=== PATIENT | female | born 1950 | race Two or more races ===

== ENCOUNTER 2025-01-20 02:22 | Inpatient (IN) | payer MEDICARE ==
[~2025-01-20] VITALS: Ht 157.5 cm; Wt 60.3 kg
[2025-01-20 03:05] LABS: BASOPHILS % (AUTO) 0.3 % (0.0-2.0); EOSINOPHILS # (AUTO) 0.2 K/uL (0.0-0.7); EOSINOPHILS % (AUTO) 2.3 % (0.0-6.0); HEMATOCRIT 41 % (33-45); HEMOGLOBIN 13.6 g/dL (11.5-14.8); LYMPHOCYTES # (AUTO) 0.6 K/uL (0.8-4.8); LYMPHOCYTES % (AUTO) 5.8 % (20.0-44.0); MEAN CORPUSCULAR HEMOGLOBIN 32 PG (26.0-33.0); MEAN CORPUSCULAR HGB CONC 34 g/dl (31.0-36.0); MEAN CORPUSCULAR VOLUME 94 fL (82-100); MONOCYTES # (AUTO) 0.5 K/uL (0.1-1.30); MONOCYTES % (AUTO) 4.8 % (2.0-12.0); NEUTROPHILS % (AUTO) 86.8 % (43.0-81.0); PLATELET COUNT (AUTO) 164 K/uL (150-450); RED BLOOD CELL COUNT(AUTO) 4.34 MIL/uL (4.0-5.2); RED CELL DISTRIBUTION WIDTH 13.5 % (11.5-15.0); WHITE BLOOD COUNT (AUTO) 10.4 K/uL (4.3-11.0)
[2025-01-20] MEDS: IV NS 0.9% 500 ML BAG IV ONE (03:06)
[2025-01-20 03:11] LABS: INR 1.08 (0.91-1.10); PARTIAL THROMBOPLASTIN TIME 25.9 SEC (24.3-34.3); PROTHROMBIN TIME 11.4 SECS (9.2-11.1)
[2025-01-20 03:26] LABS: CALCIUM, SERUM 9.2 mg/dL (8.5-10.1); CARBON DIOXIDE 27 mmol/L (21-32); CHLORIDE 98 mmol/L (98-107); CREATININE 0.9 mg/dL (0.6-1.3); GLUCOSE 172 mg/dL (74-106); POTASSIUM 3.9 mmol/L (3.5-5.1); SODIUM SERUM 134 mmol/L (136-145); UREA NITROGEN, BLOOD 22 mg/dL (7-18)
[2025-01-20 03:39] LABS: ALANINE AMINOTRANSFERASE 32 U/L (12-78); ALKALINE PHOSPHATASE 134 U/L (46-116); ASPARTATE AMINOTRANSFERASE 27 U/L (15-37); BILIRUBIN,DIRECT 0.2 mg/dL (0.0-0.2); BILIRUBIN,TOTAL 0.6 mg/dL (0.2-1.0); NT-PRO BNP 2116 pg/mL (0-125); TOTAL PROTEIN, SERUM 7.5 g/dL (6.4-8.2)
[2025-01-20] MEDS ORDERED: FUROSEMIDE 20 MG/2 ML VIAL ONE (05:21)
[2025-01-20] MEDS: FUROSEMIDE 20 MG/2 ML VIAL IV ONE (05:22)
[2025-01-20] MEDS ORDERED: MAGNESIUM HYDROXIDE 30 ML UDC PO PRN (06:00)
[2025-01-20] MEDS ORDERED: MAG HYDROX/AL HYDROX/SIMETH 30 ML UDC PO PRN (06:00)
[2025-01-20] MEDS: ASPIRIN EC 81 MG TABLET.DR PO SCH (09:06)
[2025-01-20] MEDS: PANTOPRAZOLE 40 MG VIAL IV SCH (09:06)
[2025-01-20] MEDS: FUROSEMIDE 20 MG/2 ML VIAL IV SCH (09:06)
[2025-01-20] MEDS ORDERED: LOSA50TA39 PO (09:07)
[2025-01-20] MEDS ORDERED: CARV12.52 PO (09:07)
[2025-01-20] MEDS ORDERED: ATOR40TA PO (09:07)
[2025-01-20] MEDS ORDERED: FLUV100T3 PO (09:07)
[2025-01-20] MEDS: ENOXAPARIN SODIUM 40 MG/0.4 ML DISP.SYRIN SQ SCH (09:10)
[2025-01-20 09:35] VITALS: BP 148/128; TEMP 98.9; O2SAT 97
[2025-01-20] MEDS: METOPROLOL TARTRATE 50 MG TABLET PO SCH (10:55)
[2025-01-20] MEDS: ENOXAPARIN SODIUM 30 MG/0.3 ML DISP.SYRIN SQ ONE (10:56)
[2025-01-20 12:19] VITALS: BP 127/89; TEMP 97.5; O2SAT 99
[2025-01-20] MEDS ORDERED: CT SWABBABLE VALVE TRANS SET 1 EA INFUS.SET MC ONE (12:47)
[2025-01-20] MEDS ORDERED: IV NS 0.9% 250 ML IV ONE (12:47)
[2025-01-20] MEDS ORDERED: IOHEXOL-350 100 ML VIAL IV ONE (12:47)
[2025-01-20] MEDS: ACETAMINOPHEN 325 MG TABLET PO PRN (16:30)
[2025-01-20 16:43] VITALS: BP 122/81; TEMP 97.5; O2SAT 95
[2025-01-20] MEDS ORDERED: ENOXAPARIN SODIUM 40 MG/0.4 ML DISP.SYRIN SQ SCH (18:00)
[2025-01-20 18:57] LABS: INR 1.11 (0.91-1.10); PARTIAL THROMBOPLASTIN TIME 30.1 SEC (24.3-34.3); PROTHROMBIN TIME 11.7 SECS (9.2-11.1)
[2025-01-20] MEDS: HEPARIN SODIUM, PORCINE 5000 UNITS/1 ML VIAL IV ONE (22:00)
[2025-01-20] MEDS: HEPARIN INFUSION/D5W 500 ML IV PRN (23:13)
[2025-01-21] MEDS ORDERED: IV NS 0.9% 1,000 ML BAG IV PRN
[2025-01-21] MEDS: IV NS 0.9% 1,000 ML IV SCH (00:11)
[2025-01-21 07:18] LABS: CALCIUM, SERUM 8.7 mg/dL (8.5-10.1); CREATININE 0.7 mg/dL (0.6-1.3); MAGNESIUM 1.8 mg/dL (1.8-2.4); PHOSPHORUS 3.8 mg/dL (2.5-4.9); POTASSIUM 3.3 mmol/L (3.5-5.1)
[2025-01-21 07:43] LABS: BASOPHILS % (AUTO) 0.7 % (0.0-2.0); EOSINOPHILS # (AUTO) 0.3 K/uL (0.0-0.7); EOSINOPHILS % (AUTO) 4.1 % (0.0-6.0); HEMATOCRIT 39 % (33-45); HEMOGLOBIN 13.5 g/dL (11.5-14.8); LYMPHOCYTES # (AUTO) 1.7 K/uL (0.8-4.8); LYMPHOCYTES % (AUTO) 23.3 % (20.0-44.0); MEAN CORPUSCULAR HEMOGLOBIN 33 PG (26.0-33.0); MEAN CORPUSCULAR HGB CONC 35 g/dl (31.0-36.0); MEAN CORPUSCULAR VOLUME 94 fL (82-100); MONOCYTES # (AUTO) 0.7 K/uL (0.1-1.30); MONOCYTES % (AUTO) 10.1 % (2.0-12.0); NEUTROPHILS # (AUTO) 4.4 K/uL (1.8-8.9); NEUTROPHILS % (AUTO) 61.8 % (43.0-81.0); PLATELET COUNT (AUTO) 153 K/uL (150-450); RED BLOOD CELL COUNT(AUTO) 4.15 MIL/uL (4.0-5.2); RED CELL DISTRIBUTION WIDTH 13.4 % (11.5-15.0); WHITE BLOOD COUNT (AUTO) 7.1 K/uL (4.3-11.0)
[2025-01-21] MEDS: ATORVASTATIN 40 MG TABLET PO SCH (09:00)
[2025-01-21] MEDS: FLUVOXAMINE MALEATE 50 MG TABLET PO SCH (09:00)
[2025-01-21] MEDS: LOSARTAN POTASSIUM 50 MG TABLET PO SCH (09:00)
[2025-01-21] MEDS: METOPROLOL TARTRATE 50 MG TABLET PO SCH (11:15)
[2025-01-21] MEDS: POTASSIUM CHLORIDE 20 MEQ TAB.PRT.SR PO SCH (11:15)
[2025-01-21 13:32] LABS: INR 1.08 (0.91-1.10); PROTHROMBIN TIME 11.4 SECS (9.2-11.1)
[2025-01-21] MEDS ORDERED: DILTIAZEM HCL IV 125 MG in IV NS 0.9% 100 ML IV PRN (14:00)
[2025-01-21] MEDS ORDERED: DILTIAZEM HCL 50 MG IV IV ONE ×2 (14:00)
[2025-01-21] MEDS ORDERED: NS 0.9% IV PRN (14:00)
[2025-01-21] MEDS ORDERED: DILTIAZEM HCL IV PRN (14:00)
[2025-01-21] MEDS ORDERED: IOHEXOL-350 100 ML VIAL IV ONE (14:35)
[2025-01-21] MEDS ORDERED: NITROGLYCERIN 0.4 MG/TAB BOTTLE ONE (14:36)
[2025-01-21] MEDS ORDERED: CT SWABBABLE VALVE TRANS SET 1 EA INFUS.SET MC ONE (14:36)
[2025-01-21] MEDS ORDERED: IV NS 0.9% 250 ML IV ONE (14:36)
[2025-01-21] MEDS: NITROGLYCERIN 0.4 MG/TAB BOTTLE SL ONE (15:00)
[2025-01-21] MEDS ORDERED: METOPROLOL TARTRATE INJ 5 MG/5 ML AMPUL IVP PRN (15:00)
[2025-01-21] MEDS: DILTIAZEM HCL 25 MG IV IV ONE (15:49)
[2025-01-22] VITALS (29 sets, daily range): BP systolic 105–162; BP diastolic 67–99; TEMP 98.1; O2SAT 92–100
[2025-01-22] MEDS ORDERED: HEPARIN INFUSION/D5W 500 ML IV ONE (05:58)
[2025-01-22] MEDS ORDERED: LIDOCAINE HCL/MPF 1% 30 ML VIAL IJ ONE (07:14)
[2025-01-22] MEDS ORDERED: ANESTHESIA TRAY IN PYXIS 1 EA TRAY MC ONE (07:14)
[2025-01-22] MEDS ORDERED: CELLULOSE,OXIDIZED 1 EA PACK MC ONE (07:14)
[2025-01-22] MEDS ORDERED: CELLULOSE,OXIDIZED 1 EACH EACH MC ONE (07:14)
[2025-01-22] MEDS ORDERED: CELLULOSE,OXIDIZED 1 PKT EACH MC ONE (07:14)
[2025-01-22] MEDS ORDERED: HEMOSTATIC MATRIX 8 ML 1 EACH PAD MC ONE (07:14)
[2025-01-22] MEDS ORDERED: ROPIVACAINE HCL 0.5% 5 MG/ML 30ML VIAL ONE ×2 (07:27→09:31)
[2025-01-22] MEDS ORDERED: FENTANYL PF 250MCG/5ML AMPUL ONE (08:13)
[2025-01-22] MEDS: PANTOPRAZOLE 40 MG TABLET.DR PO SCH (09:00)
[2025-01-22] MEDS ORDERED: IOHEXOL 50 ML IV ONE (09:18)
[2025-01-22] MEDS: ONDANSETRON HCL/PF 4 MG/2 ML VIAL IVP PRN (11:02)
[2025-01-22] MEDS: APIXABAN 5 MG TABLET PO SCH (11:25)
[2025-01-22] MEDS ORDERED: IV NS 0.9% 1,000 ML IV PRN (11:29)
[2025-01-22] MEDS: PIPERACILLIN /TAZOBACTAM 3.375 G in IV D5W 50 ML IV SCH (12:34)
[2025-01-22 16:08] LABS: BASOPHILS % (AUTO) 0.2 % (0.0-2.0); EOSINOPHILS % (AUTO) 0.2 % (0.0-6.0); HEMATOCRIT 25 % (33-45); HEMOGLOBIN 8.7 g/dL (11.5-14.8); LYMPHOCYTES # (AUTO) 0.5 K/uL (0.8-4.8); LYMPHOCYTES % (AUTO) 5.6 % (20.0-44.0); MEAN CORPUSCULAR HEMOGLOBIN 33 PG (26.0-33.0); MEAN CORPUSCULAR HGB CONC 35 g/dl (31.0-36.0); MEAN CORPUSCULAR VOLUME 95 fL (82-100); MONOCYTES # (AUTO) 0.9 K/uL (0.1-1.30); MONOCYTES % (AUTO) 10.6 % (2.0-12.0); NEUTROPHILS % (AUTO) 83.4 % (43.0-81.0); PLATELET COUNT (AUTO) 119 K/uL (150-450); RED BLOOD CELL COUNT(AUTO) 2.67 MIL/uL (4.0-5.2); RED CELL DISTRIBUTION WIDTH 13.6 % (11.5-15.0); WHITE BLOOD COUNT (AUTO) 8.3 K/uL (4.3-11.0)
[2025-01-22 16:18] LABS: CALCIUM, SERUM 7.9 mg/dL (8.5-10.1); CREATININE 0.7 mg/dL (0.6-1.3); POTASSIUM 4.2 mmol/L (3.5-5.1)
[2025-01-22] MEDS: HYDROCODONE/APAP 5/325MG TABLET PO PRN (18:23)
[2025-01-22] MEDS: MORPHINE SULFATE INJ 2 MG/ML DISP.SYRIN IV PRN (20:52)
[2025-01-23] VITALS (17 sets, daily range): BP systolic 100–135; BP diastolic 62–104; TEMP 97.2–98.7; O2SAT 98–100
[2025-01-23 04:27] LABS: BASOPHILS % (AUTO) 0.4 % (0.0-2.0); EOSINOPHILS % (AUTO) 0.6 % (0.0-6.0); HEMATOCRIT 25 % (33-45); HEMOGLOBIN 8.8 g/dL (11.5-14.8); LYMPHOCYTES % (AUTO) 12.9 % (20.0-44.0); MEAN CORPUSCULAR HEMOGLOBIN 33 PG (26.0-33.0); MEAN CORPUSCULAR HGB CONC 35 g/dl (31.0-36.0); MEAN CORPUSCULAR VOLUME 95 fL (82-100); MONOCYTES # (AUTO) 1.2 K/uL (0.1-1.30); NEUTROPHILS # (AUTO) 5.3 K/uL (1.8-8.9); NEUTROPHILS % (AUTO) 70.1 % (43.0-81.0); PLATELET COUNT (AUTO) 130 K/uL (150-450); RED BLOOD CELL COUNT(AUTO) 2.67 MIL/uL (4.0-5.2); RED CELL DISTRIBUTION WIDTH 13.6 % (11.5-15.0); WHITE BLOOD COUNT (AUTO) 7.5 K/uL (4.3-11.0)
[2025-01-23 04:37] LABS: CALCIUM, SERUM 8.4 mg/dL (8.5-10.1); CREATININE 0.8 mg/dL (0.6-1.3); POTASSIUM 4.4 mmol/L (3.5-5.1)
[2025-01-23] MEDS ORDERED: IV NS 0.9% 1,000 ML IV PRN (11:30)
[2025-01-23] MEDS ORDERED: BUPIVACAINE 0.5 % PF 150 MG/30 ML VIAL ONE (14:28)
[2025-01-23] MEDS ORDERED: ROCURONIUM BROMIDE 50 MG/5 ML ONE (16:14)
[2025-01-23] MEDS ORDERED: FENTANYL PF 250MCG/5ML AMPUL ONE (16:14)
[2025-01-23 20:00] LABS: BASOPHILS % (AUTO) 0.2 % (0.0-2.0); EOSINOPHILS # (AUTO) 0.1 K/uL (0.0-0.7); EOSINOPHILS % (AUTO) 1.4 % (0.0-6.0); HEMATOCRIT 22 % (33-45); HEMOGLOBIN 7.4 g/dL (11.5-14.8); LYMPHOCYTES # (AUTO) 0.4 K/uL (0.8-4.8); LYMPHOCYTES % (AUTO) 6.6 % (20.0-44.0); MEAN CORPUSCULAR HEMOGLOBIN 32 PG (26.0-33.0); MEAN CORPUSCULAR HGB CONC 34 g/dl (31.0-36.0); MEAN CORPUSCULAR VOLUME 94 fL (82-100); MONOCYTES # (AUTO) 0.9 K/uL (0.1-1.30); MONOCYTES % (AUTO) 13.7 % (2.0-12.0); NEUTROPHILS # (AUTO) 5.1 K/uL (1.8-8.9); NEUTROPHILS % (AUTO) 78.1 % (43.0-81.0); PLATELET COUNT (AUTO) 115 K/uL (150-450); RED BLOOD CELL COUNT(AUTO) 2.29 MIL/uL (4.0-5.2); RED CELL DISTRIBUTION WIDTH 13.7 % (11.5-15.0); WHITE BLOOD COUNT (AUTO) 6.6 K/uL (4.3-11.0)
[2025-01-24] VITALS (11 sets, daily range): BP systolic 107–139; BP diastolic 66–97; TEMP 96.9–98.4; O2SAT 98–100
[2025-01-24 07:56] LABS: BASOPHILS % (AUTO) 0.4 % (0.0-2.0); EOSINOPHILS # (AUTO) 0.1 K/uL (0.0-0.7); HEMATOCRIT 25 % (33-45); HEMOGLOBIN 8.8 g/dL (11.5-14.8); LYMPHOCYTES # (AUTO) 0.7 K/uL (0.8-4.8); LYMPHOCYTES % (AUTO) 10.7 % (20.0-44.0); MEAN CORPUSCULAR HEMOGLOBIN 33 PG (26.0-33.0); MEAN CORPUSCULAR HGB CONC 35 g/dl (31.0-36.0); MEAN CORPUSCULAR VOLUME 93 fL (82-100); MONOCYTES # (AUTO) 0.9 K/uL (0.1-1.30); MONOCYTES % (AUTO) 13.9 % (2.0-12.0); NEUTROPHILS # (AUTO) 4.6 K/uL (1.8-8.9); PLATELET COUNT (AUTO) 118 K/uL (150-450); RED BLOOD CELL COUNT(AUTO) 2.71 MIL/uL (4.0-5.2); RED CELL DISTRIBUTION WIDTH 14.2 % (11.5-15.0); WHITE BLOOD COUNT (AUTO) 6.3 K/uL (4.3-11.0)
[2025-01-24 08:20] LABS: CALCIUM, SERUM 8.3 mg/dL (8.5-10.1); CREATININE 0.8 mg/dL (0.6-1.3); POTASSIUM 3.9 mmol/L (3.5-5.1)
[2025-01-24] MEDS: DILTIAZEM HCL CD 240 MG PO SCH (16:44)
[2025-01-24] MEDS: FUROSEMIDE 20 MG/2 ML VIAL IV SCH (16:44)
[2025-01-25] VITALS: BP 133/85; TEMP 97.5; O2SAT 100
[2025-01-25 04:00] VITALS: BP 114/75; TEMP 97.2; O2SAT 100
[2025-01-25 08:00] VITALS: BP 127/63; TEMP 98.5; O2SAT 99
[2025-01-25 08:53] LABS: BASOPHILS % (AUTO) 0.3 % (0.0-2.0); EOSINOPHILS # (AUTO) 0.3 K/uL (0.0-0.7); EOSINOPHILS % (AUTO) 3.5 % (0.0-6.0); HEMATOCRIT 26 % (33-45); HEMOGLOBIN 9.1 g/dL (11.5-14.8); LYMPHOCYTES # (AUTO) 0.6 K/uL (0.8-4.8); LYMPHOCYTES % (AUTO) 8.9 % (20.0-44.0); MEAN CORPUSCULAR HEMOGLOBIN 32 PG (26.0-33.0); MEAN CORPUSCULAR HGB CONC 35 g/dl (31.0-36.0); MEAN CORPUSCULAR VOLUME 93 fL (82-100); MONOCYTES # (AUTO) 0.9 K/uL (0.1-1.30); MONOCYTES % (AUTO) 11.9 % (2.0-12.0); NEUTROPHILS # (AUTO) 5.5 K/uL (1.8-8.9); NEUTROPHILS % (AUTO) 75.4 % (43.0-81.0); PLATELET COUNT (AUTO) 131 K/uL (150-450); RED BLOOD CELL COUNT(AUTO) 2.82 MIL/uL (4.0-5.2); RED CELL DISTRIBUTION WIDTH 14.2 % (11.5-15.0); WHITE BLOOD COUNT (AUTO) 7.3 K/uL (4.3-11.0)
[2025-01-25 09:22] LABS: CALCIUM, SERUM 8.8 mg/dL (8.5-10.1); CREATININE 0.9 mg/dL (0.6-1.3); POTASSIUM 4.2 mmol/L (3.5-5.1)
[2025-01-25] MEDS: FUROSEMIDE 20 MG/2 ML VIAL IV ONE (09:26)
[2025-01-25] MEDS ORDERED: METO50TA16 PO (10:56)
[2025-01-25] MEDS ORDERED: Hydrocodone/Apap 5/325MG PO (10:56)
[2025-01-25] MEDS ORDERED: PANT40TA49 PO (10:56)
[2025-01-25] MEDS ORDERED: APIX5TAB PO (10:56)
[2025-01-25 12:00] VITALS: BP 121/71; TEMP 98.2; O2SAT 97
[2025-01-25 14:18] VITALS: O2SAT 95
[2025-01-25 16:00] VITALS: BP 107/65; TEMP 98; O2SAT 94
== END 2025-01-25 19:13 | DRG 907 ==
LOC: ER 02:24 → TELE1 05:53 → TELE-TD 01-21 13:39 → ICU 01-22 10:16 → TELE-TD 01-23 10:07 → TELE1 01-23 10:27
PROVIDERS: ADMIT Nurse Practitioner Acute Care; ATTEND Internal Medicine
PROC: 04CN0ZZ Extirpation of Matter from Left Popliteal Artery, Open Approach (ICD-10-PCS; 2025-01-22)
PROC: 0KNR0ZZ Release Left Upper Leg Muscle, Open Approach (ICD-10-PCS; 2025-01-22)
PROC: 0KNR0ZZ Release Left Upper Leg Muscle, Open Approach (ICD-10-PCS; 2025-01-22)
PROC: 0KNR0ZZ Release Left Upper Leg Muscle, Open Approach (ICD-10-PCS; 2025-01-22)
PROC: 0KNR0ZZ Release Left Upper Leg Muscle, Open Approach (ICD-10-PCS; 2025-01-22)
PROC: 04CL0ZZ Extirpation of Matter from Left Femoral Artery, Open Approach (ICD-10-PCS; principal; 2025-01-22 08:00)
PROC: 0H9LXZZ Drainage of Left Lower Leg Skin, External Approach (ICD-10-PCS; 2025-01-23)
PROC: 30233N1 Transfusion of Nonautologous Red Blood Cells into Peripheral Vein, Percutaneous Approach (ICD-10-PCS; 2025-01-23)
DX: T79.A22A Traumatic compartment syndrome of left lower extremity, initial encounter (principal); I21.A1 Myocardial infarction type 2; I50.31 Acute diastolic (congestive) heart failure; J96.01 Acute respiratory failure with hypoxia; I82.612 Acute embolism and thrombosis of superficial veins of left upper extremity; I11.0 Hypertensive heart disease with heart failure; I48.91 Unspecified atrial fibrillation; Z86.73 Personal history of transient ischemic attack (TIA), and cerebral infarction without residual deficits; E78.5 Hyperlipidemia, unspecified; Z20.822 Contact with and (suspected) exposure to COVID-19; Z53.9 Procedure and treatment not carried out, unspecified reason; Z95.2 Presence of prosthetic heart valve; E11.51 Type 2 diabetes mellitus with diabetic peripheral angiopathy without gangrene; Y92.89 Other specified places as the place of occurrence of the external cause; X58.XXXA Exposure to other specified factors, initial encounter; I70.222 Atherosclerosis of native arteries of extremities with rest pain, left leg; I25.2 Old myocardial infarction; Z79.899 Other long term (current) drug therapy; S80.12XA Contusion of left lower leg, initial encounter; Y92.239 Unspecified place in hospital as the place of occurrence of the external cause
CPT/HCPCS: 36415; 71045-TC; 75574; 80048-TC; 80076-TC; 82962-TC; 83735-TC; 83880; 84100-TC; 84484-TC; 85025-TC; 85610-TC; 85730-TC; 86850-TC; 88305-TC; 93307-TC; 93971-TC; 97110-TC; 97116-TC; 97530-TC; A4217; A4223; A6209; A6253; C1757; C1769; G0378; J0690; J1644; J1650; J1940; J2270; J2405; J2470; J2543; J2704; J2795; J3010; J3490; J7030; J7042; J7050; J7060; P9016; Q9967

== ENCOUNTER 2025-01-26 13:21 | Inpatient (IN) | payer MEDICARE ==
[~2025-01-26] VITALS: Ht 157.5 cm; Wt 65.8 kg
[~2025-01-26 13:21] MED LIST: APIX5TAB PO; ATOR40TA PO; CARV12.52 PO; FLUV100T3 PO; Hydrocodone/Apap 5/325MG PO; LOSA50TA39 PO; METO50TA16 PO; PANT40TA49 PO
[2025-01-26 14:46] LABS: BASOPHILS % (AUTO) 0.4 % (0.0-2.0); EOSINOPHILS # (AUTO) 0.2 K/uL (0.0-0.7); EOSINOPHILS % (AUTO) 2.8 % (0.0-6.0); HEMATOCRIT 25 % (33-45); HEMOGLOBIN 8.6 g/dL (11.5-14.8); LYMPHOCYTES # (AUTO) 0.7 K/uL (0.8-4.8); LYMPHOCYTES % (AUTO) 11.1 % (20.0-44.0); MEAN CORPUSCULAR HEMOGLOBIN 33 PG (26.0-33.0); MEAN CORPUSCULAR HGB CONC 35 g/dl (31.0-36.0); MEAN CORPUSCULAR VOLUME 92 fL (82-100); MONOCYTES % (AUTO) 16.1 % (2.0-12.0); NEUTROPHILS # (AUTO) 4.3 K/uL (1.8-8.9); NEUTROPHILS % (AUTO) 69.6 % (43.0-81.0); PLATELET COUNT (AUTO) 182 K/uL (150-450); RED BLOOD CELL COUNT(AUTO) 2.66 MIL/uL (4.0-5.2); WHITE BLOOD COUNT (AUTO) 6.2 K/uL (4.3-11.0)
[2025-01-26 15:01] LABS: ALBUMIN 2.8 g/dL (3.4-5.0); BILIRUBIN,DIRECT 0.3 mg/dL (0.0-0.2); CALCIUM, SERUM 8.9 mg/dL (8.5-10.1); CREATININE 0.7 mg/dL (0.6-1.3); POTASSIUM 3.5 mmol/L (3.5-5.1); TOTAL PROTEIN, SERUM 6.1 g/dL (6.4-8.2)
[2025-01-26 15:28] LABS: INR 1.06 (0.91-1.10); PARTIAL THROMBOPLASTIN TIME 24.9 SEC (24.3-34.3); PROTHROMBIN TIME 11.2 SECS (9.2-11.1)
[2025-01-26 17:41] LABS: ANISOCYTOSIS 1+; BAND % (MANUAL) 1 % (0.0-5.0); EOSINOPHILS % (MANUAL) 3 % (0-4); LYMPHOCYTES % (MANUAL) 11 % (16-48); MONOCYTES % (MANUAL) 10 % (0-11.0); NEUTROPHILS % (MANUAL) 75 (42-76); PLATELET ESTIMATE ADEQUATE
[2025-01-26 17:42] LABS: OVALOCYTES 1+
[2025-01-26] MEDS ORDERED: MAGNESIUM HYDROXIDE 30 ML UDC PO PRN (18:00)
[2025-01-26] MEDS ORDERED: ONDANSETRON HCL/PF 4 MG/2 ML VIAL IVP PRN (18:00)
[2025-01-26] MEDS ORDERED: Z GUARD REMEDY 4 OZ OINT TP PRN (18:00)
[2025-01-26] MEDS ORDERED: MAG HYDROX/AL HYDROX/SIMETH 30 ML UDC PO PRN (18:00)
[2025-01-26 18:56] VITALS: BP 110/75; TEMP 98.7; O2SAT 99
[2025-01-26 20:00] VITALS: BP 142/88; TEMP 98.6; O2SAT 96
[2025-01-27 08:00] VITALS: BP 146/86; TEMP 97.9; O2SAT 94
[2025-01-27 11:12] LABS: BASOPHILS % (AUTO) 0.5 % (0.0-2.0); EOSINOPHILS # (AUTO) 0.3 K/uL (0.0-0.7); EOSINOPHILS % (AUTO) 4.8 % (0.0-6.0); HEMATOCRIT 26 % (33-45); HEMOGLOBIN 9.1 g/dL (11.5-14.8); LYMPHOCYTES # (AUTO) 0.6 K/uL (0.8-4.8); MEAN CORPUSCULAR HEMOGLOBIN 33 PG (26.0-33.0); MEAN CORPUSCULAR HGB CONC 35 g/dl (31.0-36.0); MEAN CORPUSCULAR VOLUME 94 fL (82-100); MONOCYTES # (AUTO) 0.8 K/uL (0.1-1.30); MONOCYTES % (AUTO) 14.3 % (2.0-12.0); NEUTROPHILS # (AUTO) 3.8 K/uL (1.8-8.9); NEUTROPHILS % (AUTO) 69.4 % (43.0-81.0); PLATELET COUNT (AUTO) 191 K/uL (150-450); RED BLOOD CELL COUNT(AUTO) 2.81 MIL/uL (4.0-5.2); RED CELL DISTRIBUTION WIDTH 14.2 % (11.5-15.0); WHITE BLOOD COUNT (AUTO) 5.5 K/uL (4.3-11.0)
[2025-01-27 11:22] LABS: CALCIUM, SERUM 8.7 mg/dL (8.5-10.1); CREATININE 0.7 mg/dL (0.6-1.3); MAGNESIUM 1.8 mg/dL (1.8-2.4); PHOSPHORUS 2.5 mg/dL (2.5-4.9); POTASSIUM 3.4 mmol/L (3.5-5.1)
[2025-01-27] MEDS: PANTOPRAZOLE 40 MG TABLET.DR PO SCH (11:32)
[2025-01-27] MEDS: CARVEDILOL 12.5 MG TABLET PO SCH (11:33)
[2025-01-27] MEDS: LOSARTAN POTASSIUM 50 MG TABLET PO SCH (11:34)
[2025-01-27] MEDS: METOPROLOL TARTRATE 50 MG TABLET PO SCH (11:34)
[2025-01-27] MEDS: APIXABAN 5 MG TABLET PO SCH (11:36)
[2025-01-27] MEDS ORDERED: HYDROCODONE/APAP 5/325MG TABLET PO PRN (13:00)
[2025-01-27 16:00] VITALS: BP 139/91; TEMP 98.4; O2SAT 98
[2025-01-27 16:40] VITALS: BP 139/91
[2025-01-27] MEDS: POTASSIUM CHLORIDE 20 MEQ TAB.PRT.SR PO ONE (18:33)
[2025-01-27 18:36] VITALS: TEMP 98.7
[2025-01-27] MEDS: ACETAMINOPHEN 325 MG TABLET PO PRN (18:36)
[2025-01-27] MEDS ORDERED: ATORVASTATIN 40 MG TABLET PO SCH (22:00)
[2025-01-28] MEDS ORDERED: FLUVOXAMINE MALEATE 50 MG TABLET PO SCH (09:00)
== END 2025-01-27 16:45 | DRG 605 ==
LOC: ER 13:25 → TELE 17:37 → MED 20:00
PROVIDERS: ADMIT Nurse Practitioner Family; ATTEND Nurse Practitioner Family
DX: S50.12XA Contusion of left forearm, initial encounter (principal); E44.1 Mild protein-calorie malnutrition; T79.A0XA Compartment syndrome, unspecified, initial encounter; I48.91 Unspecified atrial fibrillation; Z95.1 Presence of aortocoronary bypass graft; Z86.73 Personal history of transient ischemic attack (TIA), and cerebral infarction without residual deficits; E11.65 Type 2 diabetes mellitus with hyperglycemia; E78.5 Hyperlipidemia, unspecified; Z79.01 Long term (current) use of anticoagulants; I10 Essential (primary) hypertension; Z86.718 Personal history of other venous thrombosis and embolism; Z98.890 Other specified postprocedural states; D64.9 Anemia, unspecified; X58.XXXA Exposure to other specified factors, initial encounter; Y92.9 Unspecified place or not applicable; F41.9 Anxiety disorder, unspecified; E88.09 Other disorders of plasma-protein metabolism, not elsewhere classified; K21.9 Gastro-esophageal reflux disease without esophagitis; M19.90 Unspecified osteoarthritis, unspecified site; Z88.1 Allergy status to other antibiotic agents; Z88.8 Allergy status to other drugs, medicaments and biological substances; Z79.899 Other long term (current) drug therapy; E11.51 Type 2 diabetes mellitus with diabetic peripheral angiopathy without gangrene
CPT/HCPCS: 36415; 73200-TC; 80048-TC; 80076-TC; 83735-TC; 84100-TC; 85025-TC; 85730-TC; 87081-TC; 93930-TC; 93971-TC; G0378

== ENCOUNTER 2025-05-10 13:36 | Emergency (ER) | payer MEDICARE ==
[~2025-05-10] VITALS: Ht 157.5 cm; Wt 56.7 kg
[2025-05-10 14:08] VITALS: TEMP 98.2
[2025-05-10 14:44] LABS: BASOPHILS % (AUTO) 0.7 % (0.0-2.0); EOSINOPHILS # (AUTO) 0.3 K/uL (0.0-0.7); HEMATOCRIT 39 % (33-45); HEMOGLOBIN 13.3 g/dL (11.5-14.8); LYMPHOCYTES # (AUTO) 0.7 K/uL (0.8-4.8); LYMPHOCYTES % (AUTO) 13.3 % (20.0-44.0); MEAN CORPUSCULAR HEMOGLOBIN 31 PG (26.0-33.0); MEAN CORPUSCULAR HGB CONC 34 g/dl (31.0-36.0); MEAN CORPUSCULAR VOLUME 91 fL (82-100); MONOCYTES # (AUTO) 0.6 K/uL (0.1-1.30); MONOCYTES % (AUTO) 12.1 % (2.0-12.0); NEUTROPHILS # (AUTO) 3.4 K/uL (1.8-8.9); NEUTROPHILS % (AUTO) 67.9 % (43.0-81.0); PLATELET COUNT (AUTO) 151 K/uL (150-450); RED BLOOD CELL COUNT(AUTO) 4.28 MIL/uL (4.0-5.2); RED CELL DISTRIBUTION WIDTH 14.8 % (11.5-15.0); WHITE BLOOD COUNT (AUTO) 5.1 K/uL (4.3-11.0)
[2025-05-10 14:53] LABS: CALCIUM, SERUM 8.9 mg/dL (8.5-10.1); POTASSIUM 4.3 mmol/L (3.5-5.1)
[2025-05-10 14:59] LABS: INR 1.12 (0.91-1.10); PARTIAL THROMBOPLASTIN TIME 29.5 SEC (24.3-34.3); PROTHROMBIN TIME 11.8 SECS (9.2-11.1)
[2025-05-10] MEDS ORDERED: IV NS 0.9% 250 ML IV ONE (15:28)
[2025-05-10] MEDS ORDERED: IOHEXOL-350 100 ML VIAL IV ONE (15:28)
[2025-05-10] MEDS ORDERED: CT SWABBABLE VALVE TRANS SET 1 EA INFUS.SET MC ONE (15:28)
[2025-05-10] MEDS ORDERED: MORPHINE SULFATE INJ 2 MG/ML DISP.SYRIN ONE (18:30)
[2025-05-10] MEDS: MORPHINE SULFATE INJ 2 MG/ML DISP.SYRIN IV ONE (18:34)
[2025-05-10] MEDS ORDERED: HYDR-3972 PO (19:34)
[2025-05-10 19:45] VITALS: BP 145/92; O2SAT 97
== END 2025-05-10 19:44 | disposition home or self-care (01) ==
LOC: ER 13:38
DX: M79.652 Pain in left thigh (principal); M79.89 Other specified soft tissue disorders; I10 Essential (primary) hypertension; E11.9 Type 2 diabetes mellitus without complications; E78.5 Hyperlipidemia, unspecified; I48.91 Unspecified atrial fibrillation; M19.90 Unspecified osteoarthritis, unspecified site; Z79.01 Long term (current) use of anticoagulants; Z79.899 Other long term (current) drug therapy; Z86.718 Personal history of other venous thrombosis and embolism; Z86.73 Personal history of transient ischemic attack (TIA), and cerebral infarction without residual deficits; Z88.1 Allergy status to other antibiotic agents; Z88.8 Allergy status to other drugs, medicaments and biological substances; Z95.1 Presence of aortocoronary bypass graft
CPT/HCPCS: 99285; 96374; 75635; 93971; 85025; 80048; 85610; 85730; 36415; J7050; J2270; Q9967